=== PATIENT | male | born 1955 | race Caucasian/White ===

== ENCOUNTER 2017-08-20 12:27 | Emergency (ER) | payer MEDICARE ==
[~2017-08-20] VITALS: Ht 185.4 cm; Wt 100.0 kg
[~2017-08-20 12:27] MED LIST: DIVA125T2 PO; DIVA500T17 PO; FLUO10TA PO; QUET200T4 PO; QUET25TA5 PO
== END 2017-08-20 13:11 | disposition home or self-care (01) ==
LOC: ED 13:05
DX: R44.0 Auditory hallucinations (principal); F31.9 Bipolar disorder, unspecified; F25.9 Schizoaffective disorder, unspecified; Z88.5 Allergy status to narcotic agent; Z88.8 Allergy status to other drugs, medicaments and biological substances
CPT/HCPCS: 99284